=== PATIENT | male | born 1990 | race Caucasian/White ===

== ENCOUNTER 2020-06-19 12:48 | Emergency (ER) | payer BC, OTHER ==
[2020-06-19] MEDS ORDERED: Boostrix 0.5 ML (Tdap) VIAL ONE (13:05)
[2020-06-19] MEDS ORDERED: Bacitracin 1 PK ONE (13:08)
== END 2020-06-19 13:20 | disposition home or self-care (01) ==
LOC: NAV ERS 12:48
DX: S81.851A Open bite, right lower leg, initial encounter (principal); I10 Essential (primary) hypertension; F17.290 Nicotine dependence, other tobacco product, uncomplicated; Z79.899 Other long term (current) drug therapy; W54.0XXA Bitten by dog, initial encounter
CPT/HCPCS: 90471; 90715